=== PATIENT | female | born 1970 | race Two or more races ===

== ENCOUNTER 2023-11-21 11:26 | Emergency (ER) | payer OTHER ==
[~2023-11-21] VITALS: Ht 154.9 cm; Wt 80.3 kg
[~2023-11-21 11:26] MED LIST: FLEXERIL10 MG PO
[2023-11-21] MEDS ORDERED: 0.9 % SODIUM CHLORIDE 1,000 ML IV STA (13:14)
[2023-11-21 13:59] LABS: HEMOGLOBIN 13.4 g/dL (12.0-15.00); MEAN CELL VOLUME 88.5 fL (80.00-100.00); MEAN CORPUSCULAR HEMOGLOBIN 30.5 pg (27.00-32.0); MEAN CORPUSCULAR HGB CONC 34.4 g/dl (32.0-36.0); PLATELET COUNT 261 K/uL (150-450); RED CELL DISTRIBUTION WIDTH 14.3 % (11.5-14.5)
[2023-11-21 14:15] LABS: CALCIUM 9.2 mg/dL (8.5-10.1); CREATININE SERUM 0.86 mg/dL (0.55-1.02); GFR 69.84; POTASSIUM 3.64 mEq/L (3.5-5.1)
[2023-11-21] MEDS ORDERED: KETOROLAC TROMETHAMINE 60 MG VIAL IM ONE (16:30)
== END 2023-11-21 17:51 | disposition home or self-care (01) ==
LOC: ER 11:27
PROVIDERS: General Practice
DX: N93.8 Other specified abnormal uterine and vaginal bleeding (principal); E03.9 Hypothyroidism, unspecified; D25.9 Leiomyoma of uterus, unspecified

== ENCOUNTER 2024-10-01 06:11 | Day surgery (SDC) | payer OTHER ==
[2024-09-25 09:00] LABS: HEMATOCRIT 43.3 % (36.0-45.00); HEMOGLOBIN 14.4 g/dL (12.0-15.00); MEAN CELL VOLUME 91.7 fL (80.00-100.00); MEAN CORPUSCULAR HEMOGLOBIN 30.4 pg (27.00-32.0); MEAN CORPUSCULAR HGB CONC 33.2 g/dl (32.0-36.0); PLATELET COUNT 213 K/uL (150-450); RED BLOOD COUNT 4.72 M/uL (4.00-6.00); RED CELL DISTRIBUTION WIDTH 13.9 % (11.5-14.5)
[2024-09-25 09:01] LABS: PH,URINE 5.5 (5.0-8.0); URINE APPEARANCE Clear; URINE BILIRRUBIN Negative (NEGATIVE); URINE BLOOD Small; URINE COLOR Dark Yellow; URINE GLUCOSE Negative (NEGATIVE); URINE KETONE Trace (NEGATIVE); URINE LEUKOCYTE Small; URINE NITRATE Negative; URINE PROTEIN Trace (NEGATIVE); URINE UROBILINOGEN 0.2 E.U./dl
[2024-09-25 09:02] VITALS: BP 113/76
[2024-09-25 09:02] LABS: URINE EPITHELIAL CELLS 13.4 uL (0.0-38.8); URINE RBC 33.5 uL (0.0-20.8); URINE WBC 26.2 uL (0.0-23.2)
[2024-09-25 09:06] LABS: URINE CAST 0.29 uL (0.0-1.40)
[2024-09-25 09:38] LABS: INR 0.99; PARTIAL THROMBOPLASTIN TIME 27.3 SECONDS (22.0-34.0); PROTHROMBIN TIME 10.8 SECONDS (9.0-11.5)
[2024-09-25 10:11] LABS: BILIRUBIN TOTAL 0.77 mg/dL (0.3-1.2); CALCIUM 9.5 mg/dL (8.5-10.1); CREATININE SERUM 0.94 mg/dL (0.55-1.02); GFR 62.78; GLOBULINA 3.1 G/DL (2.4-3.5); POTASSIUM 3.8 mEq/L (3.5-5.1); TOTAL PROTEIN 7.1 gm/dL (6.4-8.2)
[2024-09-25 12:14] LABS: RH NEGATIVE
[~2024-10-01] VITALS: Ht 154.9 cm; Wt 66.7 kg
[~2024-10-01 06:11] MED LIST changes: +CLONAZEPAM1 MG PO; +MEGESTROL ACETA40 MG PO; +SYNTHROID50 MCG PO
[2024-10-01] MEDS ORDERED: POVIDONE-IODINE 118 ML BOTT TOP ONE (08:51)
[2024-10-01] MEDS ORDERED: KETOROLAC TROMETHAMINE 30 MG VIAL IV ONE (10:15)
== END 2024-10-01 16:05 | disposition home or self-care (01) ==
LOC: CIR.AMB 06:11
PROVIDERS: ATTEND Student in an Organized Health Care Education/Training Program
DX: N84.0 Polyp of corpus uteri (principal); N93.8 Other specified abnormal uterine and vaginal bleeding; N94.4 Primary dysmenorrhea; N80.03 Adenomyosis of the uterus; Z88.6 Allergy status to analgesic agent

== ENCOUNTER 2024-12-19 08:15 | Inpatient (IN) | payer OTHER ==
[~2024-12-19] VITALS: Ht 154.9 cm; Wt 68.0 kg
[2024-12-19 09:51] LABS: HEMATOCRIT 43.2 % (36.0-45.00); HEMOGLOBIN 15.1 g/dL (12.0-15.00); MEAN CELL VOLUME 90.8 fL (80.00-100.00); MEAN CORPUSCULAR HEMOGLOBIN 31.8 pg (27.00-32.0); PLATELET COUNT 215 K/uL (150-450); RED BLOOD COUNT 4.75 M/uL (4.00-6.00)
[2024-12-19] MEDS ORDERED: ADVIL200 MG PO (09:59)
[2024-12-19 10:05] VITALS: BP 126/81
[2024-12-19 10:10] VITALS: BP 131/87
[2024-12-19 10:19] LABS: INR 1.01; PARTIAL THROMBOPLASTIN TIME 28.5 SECONDS (22.0-34.0)
[2024-12-19 10:28] LABS: ALKALINE PHOSPHATASE 87 U/L (50-136); ALT/SGPT 24 U/L (12-78); ANION GAP 5 (10.0-20.0); AST/SGOT 17 U/L (15-37); BILIRUBIN TOTAL 0.64 mg/dL (0.3-1.2); BLOOD UREA NITROGEN 13 mg/dL (7-18); BUN CREA RATIO 14 (7.0-25.0); CALCIUM 9.5 mg/dL (8.5-10.1); CARBON DIOXIDE 32 mEq/L (21-32); CHLORIDE 107 mmol/L (98-107); CREATININE SERUM 0.93 mg/dL (0.55-1.02); GFR 63.31; GLOBULINA 3.4 G/DL (2.4-3.5); GLUCOSE FASTING 80 mg/dL (65-100); OSMOLALITY SERUM 278 MOSM/KG (275-295); POTASSIUM 4.29 mEq/L (3.5-5.1); SODIUM 140 mmol/L (136-145); TOTAL PROTEIN 7.4 gm/dL (6.4-8.2)
[2024-12-19 10:31] LABS: HCG QUANTITATIVE < 1 mUI/mL (1-3)
[2024-12-19 12:26] LABS: RH NEGATIVE
[2024-12-26] MEDS ORDERED: POVIDONE-IODINE 118 ML BOTT TOP ONE ×2 (11:13→12:45)
[2024-12-26] MEDS ORDERED: CEFAZOLIN SODIUM 1,000 MG VIAL ONE (11:14)
[2024-12-26] MEDS ORDERED: CEFAZOLIN SODIUM 1,000 MG VIAL IV ONE (12:45)
[2024-12-26] MEDS ORDERED: MORPHINE SULFATE 4 MG/ML VIAL IV ONE (15:20)
[2024-12-26] MEDS ORDERED: RINGERS SOLUTION,LACTATED 1,000 ML IV SCH (17:30)
[2024-12-26] MEDS ORDERED: KETOROLAC TROMETHAMINE 30 MG VIAL IV SCH (17:56)
[2024-12-26] MEDS ORDERED: GABAPENTIN 300 MG CAPSULE PO SCH (17:56)
[2024-12-26] MEDS ORDERED: OxyCODONE HCL 5 MG TABLET (ROXICODONE) PO SCH (18:00)
[2024-12-26] MEDS ORDERED: ACETAMINOPHEN 500 MG GEL..CAP PO SCH (18:00)
[2024-12-26] MEDS ORDERED: KETOROLAC TROMETHAMINE 30 MG VIAL IV ONE (18:15)
[2024-12-26] MEDS ORDERED: ACETAMINOPHEN 500 MG GEL..CAP PO ONE (19:15)
[2024-12-26 20:09] VITALS: BP 126/81
[2024-12-27] VITALS: BP 104/66
[2024-12-27 08:37] VITALS: BP 119/71
== END 2024-12-27 12:23 | disposition home or self-care (01) | DRG 743 ==
LOC: OB/GYN 12-26 08:15 → O/R 12-26 09:01 → OB/GYN 12-26 16:01
PROVIDERS: ADMIT Student in an Organized Health Care Education/Training Program; ATTEND Student in an Organized Health Care Education/Training Program
PROC: 0UT94ZZ Resection of Uterus, Percutaneous Endoscopic Approach (ICD-10-PCS; 2024-12-26)
PROC: 0UT74ZZ Resection of Bilateral Fallopian Tubes, Percutaneous Endoscopic Approach (ICD-10-PCS; 2024-12-26)
PROC: 0DNW4ZZ Release Peritoneum, Percutaneous Endoscopic Approach (ICD-10-PCS; 2024-12-26)
PROC: 0DNU4ZZ Release Omentum, Percutaneous Endoscopic Approach (ICD-10-PCS; 2024-12-26)
PROC: 0TJB8ZZ Inspection of Bladder, Via Natural or Artificial Opening Endoscopic (ICD-10-PCS; 2024-12-26)
PROC: 0UB44ZZ Excision of Uterine Supporting Structure, Percutaneous Endoscopic Approach (ICD-10-PCS; principal; 2024-12-26 08:45)
DX: D25.1 Intramural leiomyoma of uterus (principal); N80.03 Adenomyosis of the uterus; N92.0 Excessive and frequent menstruation with regular cycle; R10.2 Pelvic and perineal pain; N81.11 Cystocele, midline; N80.3C9 Endometriosis of the uterosacral ligament(s), unspecified side, unspecified depth